=== PATIENT | male | born 1980 | race Caucasian/White ===

== ENCOUNTER 2020-07-31 05:53 | Day surgery (SDC) | payer MEDICARE, MEDICAID ==
[~2020-07-31] VITALS: Ht 182.9 cm; Wt 98.1 kg
[2020-07-31 06:51] VITALS: BP 90/63
--- NOTE | 2020-07-31 07:00 | NUR ---
Mild muscle weakness noted in left leg, more pronounced in plantar and toes. Pt states nerve damage was from lower back surgery, nerve damage was done during surgery. Addendum: 07/31/20 at 1130 by Ashish CAGLE Amended: Links added.
--- NOTE | 2020-07-31 07:00 | NUR ---
Plus 3 pitting edema noted in lower left leg, and plus 1 pitting edema in lower right leg. Addendum: 07/31/20 at 1130 by Ashish CAGLE Amended: Links added.
[2020-07-31] MEDS ORDERED: SYN0.088T PO (08:08)
[2020-07-31] MEDS ORDERED: URSO250T12 PEG (08:08)
[2020-07-31] MEDS ORDERED: LACT10SO PO (08:08)
[2020-07-31] MEDS ORDERED: FURO40TA4 PO (08:08)
[2020-07-31] MEDS ORDERED: CALC-491 PO (08:08)
[2020-07-31] MEDS ORDERED: LEVE500T99 PO (08:08)
[2020-07-31] MEDS ORDERED: CALC0.255 (08:08)
[2020-07-31] MEDS ORDERED: MIDO5TAB4 PO (08:08)
[2020-07-31] MEDS ORDERED: ZINC220T4 PO (08:08)
[2020-07-31] MEDS ORDERED: POTA20TA19 PO (08:08)
[2020-07-31] MEDS ORDERED: OMEP-50 PO (08:08)
[2020-07-31] MEDS ORDERED: RIFA550T PO (08:08)
[2020-07-31 08:23] VITALS: BP 107/65
--- NOTE | 2020-07-31 11:05 | NUR ---
Pt states LBM was normal in color, amount and texture, reports experiencing occasional constipation. Addendum: 07/31/20 at 1130 by Ashish CAGLE Amended: Links added.
--- NOTE | 2020-07-31 11:15 | NUR ---
Pt denies any problems with urination, states urine output has been normal, light yellow color with no odor. Addendum: 07/31/20 at 1130 by Ashish CAGLE Amended: Links added.
== END 2020-07-31 09:15 | disposition home or self-care (01) ==
LOC: SSTAY O 05:53
PROVIDERS: ATTEND Radiology Diagnostic Radiology
DX: K70.31 Alcoholic cirrhosis of liver with ascites (principal); K76.6 Portal hypertension; F32.9 Major depressive disorder, single episode, unspecified; E03.9 Hypothyroidism, unspecified; Z98.890 Other specified postprocedural states; Z88.0 Allergy status to penicillin; Z91.041 Radiographic dye allergy status; Z79.899 Other long term (current) drug therapy; Z85.72 Personal history of non-Hodgkin lymphomas
CPT/HCPCS: 76705